=== PATIENT | female | born 1955 | race Caucasian/White ===

== ENCOUNTER 2020-07-29 08:37 | Day surgery (SDC) | payer BC ==
[~2020-07-29 08:37] MED LIST: Albuterol 0.083% 2.5 MG/3 ML Neb Soln NEB PRN; Lactated Ringers 1,000 ML IV SCH; Ondansetron 4 MG/2 ML SDV IVPUSH PRN; Sodium Chloride 0.9% 10 ML SDV IV PRN; Sodium Chloride 0.9% 10 ML Syringe FLUSH PRN; Sodium Chloride 0.9% 2.5 ML Syringe FLUSH PRN
--- NOTE | 2020-07-29 09:22 | PCM.PREANE ---
Preanesthetic Assessment - Anesthesia/Transfusion/Family Hx Anesthesia History: Prior Anesthesia Reaction Transfusion History: No Prior Transfusion(s) - Review of Systems General: No Symptoms Pulmonary: No Symptoms Cardiovascular: No Symptoms Gastrointestinal: No Symptoms Neurological: No Symptoms Other: Reports: None - Physical Assessment NPO Status Date: 07/29/20 NPO Status Time: 00:00 Vital Signs: Last Vital Signs Temp 98.4 F 07/29/20 08:55 Pulse 95 07/29/20 08:55 Resp 16 07/29/20 08:55 BP 136/79 07/29/20 08:55 Pulse Ox 95 07/29/20 08:55 Height: 5 ft 9 in Weight: 160 lb ASA Class: 2 Mental Status: Alert & Oriented x3 Airway Class: Mallampati = 2 Dentition: Reports: Normal Dentition ROM/Head Extension: Full Lungs: Clear to Auscultation, Normal Respiratory Effort Cardiovascular: Regular Rate, Regular Rhythm - Allergies Allergies/Adverse Reactions: Allergies Allergy/AdvReac Type Severity Reaction Status Date / Time No Known Allergies Allergy Verified 07/23/20 09:59 - Acknowledgements Anesthesia Type Planned: General Anesthesia Pt an Appropriate Candidate for the Planned Anesthesia: Yes Alternatives and Risks of Anesthesia Discussed w Pt/Guardian: Yes Pt/Guardian Understands and Agrees with Anesthesia Plan: Yes PreAnesthesia Questionnaire HEENT History: Reports: Other (See Below) Other HEENT History: wears glasses, recent sinus congestion- some coughing Cardiovascular History: Reports: None Respiratory History: Reports: None Gastrointestinal History: Reports: None Genitourinary History: Reports: None [employer] History: Reports: None Musculoskeletal History: Reports: None Neurological History: Reports: None Psychiatric History: Reports: None Endocrine/Metabolic History: Reports: Hypothyroidism Hematologic History: Reports: None Immunologic History: Reports: None Oncologic (Cancer) History: Reports: None Dermatologic History: Reports: None - Past Surgical History Head Surgeries/Procedures: Reports: None HEENT Surgical History: Reports: Tonsillectomy Cardiovascular Surgical History: Reports: None Respiratory Surgical History: Reports: None GI Surgical History: Reports: Colonoscopy Female Surgical History: Reports: Hysterectomy, Other (See Below) Other Female Surgeries/Procedures: removal of endometrosis x2 Endocrine Surgical History: Reports: None Neurological Surgical History: Reports: None Musculoskeletal Surgical History: Reports: None - SUBSTANCE USE Tobacco Use Status *Q: Never Tobacco User Recreational Drug Use History: No - HOME MEDS Home Medications: Home Meds Cetirizine [ZyrTEC] 10 mg PO DAILY 07/23/20 [History] Cholecalciferol (Vitamin D3) [Vitamin D3] 800 unit PO DAILY 07/23/20 [History] Levothyroxine Sodium [Synthroid] 112 mcg PO QAM 07/23/20 [History] Multivitamin 1 tab PO DAILY 07/23/20 [History] - CURRENT (IN HOUSE) MEDS Current Meds: Current Medications Albuterol (Albuterol 0.083% 2.5 Mg/3 Ml Neb Soln) 2.5 mg NEB ONETIME PRN PRN Reason: Wheezing Lactated Ringer's (Ringers, Lactated) 1,000 mls @ 125 mls/hr IV ASDIRECTED SANGITA Last Admin: 07/29/20 09:05 Dose: 125 mls/hr Documented by: Ondansetron HCl (Ondansetron 4 Mg/2 Ml Sdv) 4 mg IVPUSH ONETIME PRN PRN Reason: Nausea/Vomiting Sodium Chloride (Sodium Chloride 0.9% 10 Ml Syringe) 10 ml FLUSH ASDIRECTED PRN PRN Reason: Keep Vein Open Sodium Chloride (Sodium Chloride 0.9% 2.5 Ml Syringe) 2.5 ml FLUSH ASDIRECTED PRN PRN Reason: Keep Vein Open Sodium Chloride (Sodium Chloride 0.9% 10 Ml Syringe) 10 ml FLUSH ASDIRECTED PRN PRN Reason: Keep Vein Open Sodium Chloride (Sodium Chloride 0.9% 2.5 Ml Syringe) 2.5 ml FLUSH ASDIRECTED P RN PRN Reason: Keep Vein Open Sodium Chloride (Sodium Chloride 0.9% 10 Ml Sdv) 10 ml IV ASDIRECTED PRN PRN Reason: IV Use
[2020-07-29] MEDS ORDERED: Ondansetron 4 MG/2 ML SDV ONE (09:27)
[2020-07-29] MEDS ORDERED: fentaNYL 100 MCG/2 ML SDV ONE (09:27)
[2020-07-29] MEDS ORDERED: Midazolam 1 MG/ML 2 ML SDV ONE (09:27)
[2020-07-29] MEDS ORDERED: Propofol 200 MG/20 ML SDV ONE ×2 (09:27→10:22)
--- NOTE | 2020-07-29 11:08 | PCM48HPAN ---
Post Anesthesia Note - EVALUATION WITHIN 48HRS OF ANESTHETIC Vital Signs in Normal Range: Yes Patient Participated in Evaluation: Yes Respiratory Function Stable: Yes Airway Patent: Yes Cardiovascular Function Stable: Yes Hydration Status Stable: Yes Pain Control Satisfactory: Yes Nausea and Vomiting Control Satisfactory: Yes Mental Status Recovered: Yes Vital Signs: Last Vital Signs Temp 98.4 F 07/29/20 08:55 Pulse 95 07/29/20 08:55 Resp 16 07/29/20 08:55 BP 136/79 07/29/20 08:55 Pulse Ox 95 07/29/20 08:55
--- NOTE | 2020-07-29 11:08 | PCM.POSTAN ---
POST ANESTHESIA ASSESSMENT - MENTAL STATUS Mental Status: Alert, Oriented - VITAL SIGNS Vital Signs: Last Vital Signs Temp 98.4 F 07/29/20 08:55 Pulse 95 07/29/20 08:55 Resp 16 07/29/20 08:55 BP 136/79 07/29/20 08:55 Pulse Ox 95 07/29/20 08:55 - RESPIRATORY Respiratory Status: Respiratory Rate WNL, Airway Patent, O2 Saturation Stable - CARDIOVASCULAR CV Status: Pulse Rate WNL, Blood Pressure Stable - GASTROINTESTINAL GI Status: No Symptoms - POST OP HYDRATION Hydration Status: Adequate & Stable
--- NOTE | 2020-07-29 11:12 | PCM.OPNOTE ---
- General Post-Op/Procedure Note Date of Surgery/Procedure: 07/29/20 Operative Procedure(s): Diagnostic colonoscopy with polypectomy Findings: Large rectal polyp @ 10cm, removed with snare and marked with ink. Total of 8 rectal polyps, 3 sigmoid colon polyps and 1 transverse colon polyp Pre Op Diagnosis: Positive cologuard test Post-Op Diagnosis: 8 rectal polyps, 3 sigmoid colon polyps, transverse colon polyp Anesthesia Technique: MAC Primary Surgeon: Ladi Huynh Condition: Good
--- NOTE | 2020-07-29 16:40 | OR ---
SURGEON: LADI HUYNH MD DATE OF PROCEDURE: 07/29/2020 PREOPERATIVE DIAGNOSIS: Positive Cologuard test. POSTOPERATIVE DIAGNOSES: 1. Transverse colon polyp. 2. Sigmoid colon polyps x3. 3. Rectal polyps x8. PROCEDURE PERFORMED: Diagnostic colonoscopy with polypectomy. PRIMARY SURGEON: Ladi Huynh MD ANESTHESIA: MAC. INSTRUMENT USED: Olympus colonoscope. EXTENT OF EXAM: To the cecum. PREPARATION: Good. LIMITATIONS: None. INDICATIONS FOR EXAMINATION: The patient is a 65-year-old female who presents with a positive Cologuard test. Her brother was diagnosed with colon cancer and she has several other family members who have had colon cancer. I explained the need for a colonoscopy. I explained the procedure, expected perioperative course, and the risks. The patient verbalized understanding and wishes to proceed. PROCEDURE IN DETAIL: The patient was brought in to the endoscopy suite and placed in the left lateral decubitus position. A time-out was completed verifying the patient's name, age, date of , allergies, and procedure to be performed. Monitored anesthesia care was induced and continuous oxygen was provided via nasal cannula throughout the procedure. After adequate sedation was achieved, a digital rectal exam was performed. This exam was within normal limits. A well-lubricated colonoscope was then inserted in the rectum and advanced under direct visualization. At 10 cm from the anus, a large pedunculated polyp was noted. It was somewhat friable and I was unable to get past it without causing bleeding. I decided to excise this polyp right away. A hot snare was brought into the field. I snared and cauterized the polyp. The polyp was large, suctioned into the scope, and labeled as rectal polyp #1. I reinspected the field where I had removed this polyp. It was hemostatic. I injected 0.5 mL of black ink under the submucosa of the stalk for identification in the future. The patient was noted to have several other polyps within this area, but I left them in place until I could reach the cecum. I continued my advancement of the scope under direct visualization until I reached the cecum. It was identified by both visual and anatomic landmarks. A photograph was taken of the cecal cap as well as with the scope retroflexed within the cecum. The scope was then fully withdrawn while examining the color, texture, anatomy, and integrity of mucosa from the cecum to the anal canal. The patient had multiple polyps in the colon. She had one small transverse colon polyp which was removed in piecemeal fashion using a cold biopsy forceps. In the distal sigmoid colon, she had three sessile polyps which were removed in piecemeal fashion. Between 15 and 10 cm from the anus, the patient had multiple polyps. Some of these appeared hyperplastic, however, some did appear adenomatous. I decided to remove them all. They were all removed in piecemeal fashion using a cold biopsy forceps. The scope was then brought into the rectum and retroflexed to allow visualization of the anal canal opening. This appeared normal and a photograph was taken. The scope was then straightened out and fully withdrawn. The cecum to anus time was 29 minutes. The patient tolerated the procedure well and was transferred to the PACU in stable condition. ENDOSCOPIC DIAGNOSES: 1. Transverse colon polyp. 2. Sigmoid colon polyps x3. 3. Rectal polyps x8. RECOMMENDATION: Follow up in clinic in two weeks. PREETHI CARRILLO /[id number]
== END 2020-07-29 11:45 | disposition home or self-care (01) ==
LOC: MW.SDS 08:37
PROVIDERS: ATTEND Surgery
DX: D12.5 Benign neoplasm of sigmoid colon (principal); D12.8 Benign neoplasm of rectum; Z80.0 Family history of malignant neoplasm of digestive organs; E03.9 Hypothyroidism, unspecified; Z79.899 Other long term (current) drug therapy; Z79.890 Hormone replacement therapy; Z98.890 Other specified postprocedural states
CPT/HCPCS: 45380; 45381; 45385; 88305; J2250; J2405; J2704; J3010; J7120; 00811

== ENCOUNTER 2025-01-01 08:51 | Day surgery (SDC) | payer MEDICARE, BC ==
[~2025-01-01 08:51] MED LIST changes: -Albuterol 0.083% 2.5 MG/3 ML Neb Soln NEB PRN; -Lactated Ringers 1,000 ML IV SCH; -Ondansetron 4 MG/2 ML SDV IVPUSH PRN; -Sodium Chloride 0.9% 10 ML SDV IV PRN
[2025-01-01] MEDS: Lactated Ringers 1,000 ML IV SCH (09:25)
[2025-01-01] MEDS ORDERED: Propofol 200 MG/20 ML SDV ONE (10:10)
== END 2025-01-01 11:20 | disposition home or self-care (01) ==
LOC: MW.SDS 08:51
PROVIDERS: ATTEND Surgery
DX: Z12.11 Encounter for screening for malignant neoplasm of colon (principal); D12.5 Benign neoplasm of sigmoid colon; K63.5 Polyp of colon; E03.9 Hypothyroidism, unspecified; Z86.0100 Personal history of colon polyps, unspecified; Z79.890 Hormone replacement therapy; Z79.899 Other long term (current) drug therapy
CPT/HCPCS: 45380; J2003; J2704; J7120; 00811; 88305